=== PATIENT | female | born 1965 | race Caucasian/White ===

== ENCOUNTER 2019-08-05 16:18 | Emergency (ER) | payer BC ==
[2019-08-05 16:37] VITALS: BP 123/85; PULSE 99; TEMP 98.1; BMI 29.5
[2019-08-05] MEDS ORDERED: KETOROLAC TROMETHAMINE 30 MG/1 ML VIAL IM ONE (16:55)
[2019-08-05] MEDS ORDERED: KETOROLAC TROMETHAMINE 30 MG/1 ML VIAL ONE (16:58)
[2019-08-05] MEDS ORDERED: LIDOCAINE 5% TOPICAL PATCH TP ONE (17:32)
[2019-08-05] MEDS ORDERED: LIDOCAINE 5% TOPICAL PATCH ONE (17:33)
[2019-08-05] MEDS ORDERED: LIDOCAINE PATCH REMOVAL MC SCH (22:00)
== END 2019-08-05 17:52 | disposition home or self-care (01) ==
LOC: FER 16:18
PROC: 3E0233Z Introduction of Anti-inflammatory into Muscle, Percutaneous Approach (ICD-10-PCS; principal; 2019-08-05)
DX: S39.012A Strain of muscle, fascia and tendon of lower back, initial encounter (principal)
CPT/HCPCS: 99284-25

== ENCOUNTER 2019-11-16 23:02 | Emergency (ER) | payer BC ==
--- NOTE | 2019-11-16 23:07 | PDOC ---
History of Present Illness - General Chief Complaint: Pain Stated Complaint: UTI Time Seen by Provider: 11/16/19 23:06 History Source: Patient Exam Limitations: No Limitations - History of Present Illness Initial Comments: 11/16/19 23:24 This is a 54-year-old female who was diagnosed with a urinary tract infection approximately 10 days. Patient ago. Patient finished 5 days of Keflex and and symptoms returned so she was started on Macrobid. Patient just finished 5 days of Macrobid and symptoms are again returning. Patient does not know if her doctor did cultures and sensitivities. Patient is otherwise complaining of some left flank pain but no abdominal pain nausea vomiting. Patient also complaining of frequency and dysuria. Allergies: as per nursing notes Past Medical History: none Social history: Lives with family. No smoking. No alcohol. No illicit drugs. Surgical history: None General: No fevers or chills, no weakness, no weight loss HEENT: No change in vision. No sore throat,. No ear pain CardioVascular: no chest discomfort. No shortness of breath Respiratory:No cough, or wheezing. Gastrointestinal: no nausea, vomiting, diarrhea or constipation, No rectal bleeding Genitourinary: No dysuria, hematuria, or frequency Musculoskeletal: No joint or muscle pain or swelling Neurologic: No headache, vertigo, dizziness or loss of consciousness Psychiatric: nor depression Skin: No rashes or easy bruising Endocrine: no increased thirst or abnormal weight change Allergic: no skin or latex allergy All other systems reviewed and normal Exam: General: Well-nourished well-developed individual, no acute distress HEENT: Throat: Normal, tonsils normal, no erythema or exudate Neck: Supple, no meningeal signs, no lymphadenopathy Eyes::Pupils equal reactive and round, extraocular motion intact /Flank: There is no CVA tenderness there is some mild anterior flank discomfort on palpation. Abdomen: Soft, nondistended, normal bowel sounds, there is no tenderness on palpation diffusely Extremities: Warm, dry, no cyanosis, clubbing, or edema Skin: No rashes Neuro: Alert and oriented x3, CN II - XII intact, nonfocal exam with normal strength, normal sensation, normal reflexes, normal gait, Psych: Normal mood and affect Plan: This a 54-year-old female with frequency dysuria and urinary tract symptoms who comes in for evaluation after having taken 2 rounds of antibiotics Past History - Medical History Allergies/Adverse Reactions: Allergies Allergy/AdvReac Type Severity Reaction Status Date / Time No Known Allergies Allergy Verified 11/16/19 23:04 Home Medications: Ambulatory Orders Pantoprazole Sodium 40 mg PO DAILY 11/16/19 - Psycho-Social/Smoking History Smoking History: Never smoked ED Treatment Course - LABORATORY CBC & Chemistry Diagram: 11/16/19 23:30 11/16/19 23:30 Discharge - Discharge Information Problems reviewed: Yes Clinical Impression/Diagnosis: Left flank pain Condition: Good Disposition: HOME - Admission No - Follow up/Referral Referrals: Rika Lora MD [Primary Care Provider] - - Patient Discharge Instructions Additional Instructions: He can take Tylenol or Motrin as needed for pain. Your CAT scan did not show any kidney stones or any thing I need you need to be worried about. Return to the emergency department immediately with ANY new, persistent or worsening symptoms. Continue any medications as previously prescribed by your physician. You should follow up with your primary doctor as soon as possible regarding antwan martinez's emergency department visit. . Please make sure your doctor reviews the results of your emergency evaluation. Thank you for coming to the Emergency Department today for your care. It was a pleasure to see you today. Please note that your evaluation is INCOMPLETE until you follow-up with your doctor. - Post Discharge Activity
[2019-11-16 23:15] VITALS: BP 144/87; PULSE 101; TEMP 98.9; BMI 27.4
[2019-11-17] MEDS ORDERED: CEFTRIAXONE 1,000 MG in DEXTROSE 5%-WATER - 50 ML IVPB ONE (00:26)
[2019-11-17 01:18] LABS: BASO % 1.7 % (0-2.0); EOS % 1.2 % (0-4.5); HEMATOCRIT 35.3 % (32.4-45.2); LYMPH % 50.6 % (8-40); MCH 32.4 pg (25.7-33.7); MEAN CELL VOLUME 95.2 fl (80-96); MEAN PLT VOLUME 9.5 fl (7.5-11.1); NEUT % 37.5 % (42.8-82.8); PLATELET COUNT 433 K/MM3 (134-434); RBC 3.71 M/mm3 (3.60-5.2); RDW 13.3 % (11.6-15.6); WHITE BLOOD COUNT 5.3 K/mm3 (4.0-10.0)
[2019-11-17 01:33] LABS: ALBUMIN 3.9 g/dl (3.4-5.0); BILIRUBIN,TOTAL 1.3 mg/dL (0.2-1); BLOOD UREA NITROGEN 21.2 mg/dL (7-18); TOT PROT 7.3 g/dl (6.4-8.2)
[2019-11-17] MEDS ORDERED: LOCK ITEM NR ONE (02:07)
[2019-11-17 02:22] LABS: POTASSIUM 4.2 mmol/L (3.5-5.1)
--- OUTSIDE RECORDS SUMMARY | 2019-11-17 06:35 | XMS ---
:1965 Author Organization [facility] Name Relationship Address Phone [facility] [place] [address] PRIYANKA HOUSER SISTER (#UNKNOWN)[place] [address] PRIYANKA HOUSER Sister (#UNKNOWN)[place] [address] Re-disclosure Warning The records that you are about to access may contain information from federally- assisted alcohol or drug abuse programs. If such information is present, then the following federally mandated warning applies: This information has been disclosed to you from records protected by federal confidentiality rules (42 CFR part 2). The federal rules prohibit you from making any further disclosure of this information unless further disclosure is expressly permitted by the written consent of the person to whom it pertains or as otherwise permitted by 42 CFR part 2. A general authorization for the release of medical or other information is NOT sufficient for this purpose. The Federal rules restrict any use of the information to criminally investigate or prosecute any alcohol or drug abuse patient.The records that you are about to access may contain highly sensitive health information, the redisclosure of which is protected by Article 27-F of the [facility] Public Health law. If you continue you may haveaccess to information: Regarding HIV / AIDS; Provided by facilities licensed or operated by the [facility] Office of Mental Health; or Provided by the [facility] Office for People With Developmental Disabilities. If such information is present, then the following [facility] mandated warning applies: This information has been disclosed to you from confidential records which are protected by state law. State law prohibits you from making any further disclosure of this information without the specific written consent of the person to whom it pertains, or as otherwise permitted by law. Any unauthorized further disclosure in violation of state law may result in a fine or residential sentence or both. A general authorization for the release of medical or other information is NOT sufficient authorization for further disclosure. Insurance Providers Payer name Policy type / Policy ID Covered Covered alliance party's Policy Plan Coverage type alliance party ID relationship to Dsouza Information dsouza PPO [id number] SP [id number] [facility] [id number] SP [id number] Results ID Date Data Source [id number] 09/24/2019 09:50:00 AM EDT [facility] Name Value Range Interpretation Description Data Sup porting Code Source(s) Document(s ) 2019 [facility] Coronavirus RNA Interpretation Unspecified Specimen Qualitative RIZWAN Probe Detection This lab was ordered by [id number] and reported by [facility]. Procedure
== END 2019-11-17 02:54 | disposition home or self-care (01) ==
LOC: FER 23:02
DX: R10.9 Unspecified abdominal pain (principal)
CPT/HCPCS: 36415; 74176-TC; 80053; 81003; 81015; 85025; 87040; 87086; 99284-25

== ENCOUNTER 2020-02-19 10:14 | Emergency (ER) | payer BC | END 2020-02-19 11:23 | disposition home or self-care (01) | LOC: JERFT 10:14 | DX: S05.01XA Injury of conjunctiva and corneal abrasion without foreign body, right eye, initial encounter (principal) | CPT/HCPCS: 99283-25 ==

== ENCOUNTER 2021-10-24 16:50 | Emergency (ER) | payer BC ==
[2021-10-24 17:28] VITALS: BP 136/74; PULSE 90; RESP 18; TEMP 98.6; BMI 29.1
== END 2021-10-24 18:12 | disposition home or self-care (01) ==
LOC: FER 16:50
DX: K29.70 Gastritis, unspecified, without bleeding (principal)
CPT/HCPCS: 99283-25